=== PATIENT | female | born 1970 | race Caucasian/White ===

== ENCOUNTER 2019-06-23 01:00 | Emergency (ER) | payer BC ==
[2019-06-23 01:38] LABS: Band 4 % (5-11); Eosinophils 4 % (0-10); Hemoglobin 13.2 g/dL (12.0-16.0); Lymphocytes 26 % (21-51); MDiff Complete? YES; Mean Corpuscular HGB CONC 32.7 g/dL (32.0-36.0); Mean Corpuscular Hemoglobin 28.7 pg (27.0-31.0); Mean Corpuscular Volume 87.7 fL (78.0-98.0); Mean Platelet Volume 5.7 fL (7.4-10.4); Monocytes 6 % (0-10); Neutrophil 58 % (42-75); Platelet Count 376 thou/uL (130-400); Platelet Morphology Comment Appears Adequate; RBC Distribution Width 11.1 % (11.5-14.5); RBC Morphology Normal; Reactive Lymphocytes 2 % (0-10)
[2019-06-23 01:46] LABS: ALT (SGPT) 21 U/L (8-55); AST (SGOT) 21 U/L (5-34); Albumin 4.4 g/dL (3.5-5.0); Alkaline Phosphatase 70 U/L (40-150); Anion Gap 17 mmol/L (10-20); BUN (Urea Nitrogen) 11 mg/dL (7.0-18.7); Bilirubin, Total 0.5 mg/dL (0.2-1.2); CK (CPK) 59 U/L (29-168); Calc. Creatinine Clearance 0 mL/min (70-130); Calcium 9.8 mg/dL (7.8-10.44); Carbon Dioxide 21 mmol/L (22-29); Chloride 105 mmol/L (98-107); Estimated GFR-MDRD 69; Globulin 3.6 g/dL (2.4-3.5); Glucose 113 mg/dL (70-105); Magnesium 2.2 mg/dL (1.6-2.6); Potassium 3.9 mmol/L (3.5-5.1); Sodium 139 mmol/L (136-145)
[2019-06-23] MEDS ORDERED: Lorazepam 2 MG/ML VIAL ONE (02:25)
--- NOTE | 2019-06-23 07:36 | RAD ---
EXAM: Single view of the chest HISTORY: Irregular heart rate COMPARISON: 07/15/2016 FINDINGS: Single view of the chest shows a normal sized cardiomediastinal silhouette. There is no adria dence of consolidation, mass, or pleural effusion. The bones are unremarkable. IMPRESSION: No evidence of acute cardiopulmonary disease
== END 2019-06-23 03:18 | disposition home or self-care (01) ==
LOC: NAV ERS 01:00
DX: F41.9 Anxiety disorder, unspecified (principal); E03.9 Hypothyroidism, unspecified; F32.9 Major depressive disorder, single episode, unspecified
CPT/HCPCS: 36415; 71045; 80053; 82550; 83735; 84484; 85025; 93005; 94760; 96374; J2060

== ENCOUNTER 2024-06-14 10:13 | Emergency (ER) | payer BC ==
[2024-06-14] MEDS ORDERED: Ondansetron PF 4 MG/2 ML Vial ONE ×2 (10:38→14:12)
[2024-06-14] MEDS ORDERED: fentaNYL 50 mcg/mL 1 mL Vial ONE ×2 (10:38→12:14)
[2024-06-14] MEDS ORDERED: Sodium Chloride 0.9% 1,000 ML ONE ×2 (10:38→13:10)
[2024-06-14 10:39] LABS: #Basophils 0.1 thou/uL (0.0-0.2); #Eosinphils 0.1 thou/uL (0.0-0.7); #Lymphocytes 2.3 thou/uL (1.20-3.40); #Monocytes 0.9 thou/uL (0.11-0.59); #Neutrophils 9.7 thou/uL (1.40-6.50); %Basophils 0.6 % (0.0-1.0); %Eosinophils 0.4 % (0.0-10.0); %Lymphocytes 17.4 % (21.0-51.0); %Monocytes 6.8 % (0.0-10.0); %Neutrophils 74.7 % (42.0-75.0); Hematocrit 39.6 % (36.0-47.0); Hemoglobin 12.7 g/dL (12.0-16.0); Mean Corpuscular Hemoglobin 27.5 pg (27.0-31.0); Mean Corpuscular Volume 85.8 fl (78.0-98.0); Mean Platelet Volume 5.6 fL (7.4-10.4); Platelet Count 318 10x3/uL (130-400); RBC Distribution Width 14.3 % (11.5-14.5); Red Blood Cell (RBC) Count 4.61 mill/uL (4.20-5.40)
[2024-06-14 11:05] LABS: BHCG - Serum Negative (NEGATIVE); Pregs Control Bar Appear? YES (CONTROL BAR)
[2024-06-14 11:14] LABS: ALT (SGPT) 14 U/L (8-55); AST (SGOT) 9 U/L (5-34); Albumin 3.5 g/dL (3.5-5.0); Alkaline Phosphatase 108 U/L (40-110); Anion Gap 19 mmol/L (10-20); BUN (Urea Nitrogen) 14 mg/dL (9.8-20.1); Bilirubin, Total 0.4 mg/dL (0.2-1.2); Calc. Creatinine Clearance 0 mL/min (70-130); Calcium 9.2 mg/dL (7.8-10.44); Carbon Dioxide 20 mmol/L (22-29); Chloride 103 mmol/L (98-107); Estimated GFR 77; Globulin 3.9 g/dL (2.4-3.5); Glucose 137 mg/dL (70-105); Lipase 17 U/L (8-78); Potassium 3.5 mmol/L (3.5-5.1); Protein, Total 7.4 g/dL (6.0-8.3); Sodium 138 mmol/L (136-145)
[2024-06-14] MEDS ORDERED: Dicyclomine 20 MG/2 ML VIAL ONE (12:32)
[2024-06-14] MEDS ORDERED: LevoFLOXacin 750 mg/D5W 150 ml Premix Bag ONE (12:32)
[2024-06-14 12:35] LABS: Bilirubin Negative (Negative); Blood, Urine Trace (Negative); Glucose, Urine (Dipstick) Negative (Negative); Ketone, Urine Negative (Negative); Leukocyte Negative (Negative); Nitrite Negative (Negative); Protein, Urine (Dipstick) Negative (Neg-Trace); Urobilinogen 0.2 mg/dL (Less than 2)
[2024-06-14 12:36] LABS: Clarity Hazy (Clear)
[2024-06-14 12:41] LABS: Bacteria/HPF 2+ HPF (None Seen); CAUTI Indications for Culture Pelvic or flank pain; RBC/HPF 0-3 HPF (0-3); Squamous Epithelial 0-3 HPF (0-3); Urine Culture Reflex No No; WBC/HPF 0-3 HPF (0-3)
[2024-06-14] MEDS ORDERED: Pantoprazole 40 MG VIAL ONE (13:10)
[2024-06-14] MEDS ORDERED: Orphenadrine Citrate 60 MG/2 ML VIAL ONE (13:28)
== END 2024-06-14 14:43 | disposition short-term general hospital (02) ==
LOC: NAV ERS 10:13
DX: A09 Infectious gastroenteritis and colitis, unspecified (principal); K92.2 Gastrointestinal hemorrhage, unspecified; E03.9 Hypothyroidism, unspecified; Z79.899 Other long term (current) drug therapy
CPT/HCPCS: 74177; 80053; 81001; 83605; 83690; 84703; 85025; 96361; 96372; 96374; 96375; 96376; J1956; J2360; J2405; J2470; J2919; J3010